=== PATIENT | female | born 1990 | race African-American/Black ===

== ENCOUNTER 2017-12-10 09:09 | Emergency (ER) | payer SELFPAY ==
[~2017-12-10] VITALS: Ht 160 cm; Wt 94.0 kg
[2017-12-10 11:49] LABS: BASOPHILS % 0.5 % (0.0-2.0); EOSINOPHILS % 0.9 % (0.0-5.0); HEMATOCRIT. 42.6 % (36.0-48.0); HEMOGLOBIN. 14.8 g/dL (12.0-16.0); LYMPHOCYTES % 37.9 % (20.0-50.0); MEAN CORPUSCULAR VOLUME 86.1 fL (81.0-99.0); MEAN PLATELET VOLUME 9.6 fl (7.4-10.4); MONOCYTES % 6.8 % (2.0-8.0); NEUTROPHILS % 53.9 % (40.0-76.0); PLATELET 233 x1000/uL (130-400); RED BLOOD CELL COUNT 4.94 mill/uL (4.2-5.4); RED CELL DISTRIBUTION WIDTH 13.8 % (11.6-14.6)
[2017-12-10 12:10] LABS: CARBON DIOXIDE 27 mEq/L (21-32); CHLORIDE 103 mEq/L (98-107)
[2017-12-10 12:34] LABS: CLARITY URINE CLEAR (CLEAR); COLOR URINE YELLOW (YELLOW); KETONES URINE NEGATIVE (NEGATIVE); LEUKOCYTE ESTERASE URINE TRACE (NEGATIVE); NITRITE URINE NEGATIVE (NEGATIVE); OCCULT BLOOD URINE NEGATIVE (NEGATIVE); PROTEIN URINE NEGATIVE (NEGATIVE)
[2017-12-10 13:25] LABS: B-HCG QUANTITATIVE 3723 mIU/mL (<3)
[2017-12-10 13:50] VITALS: BP 129/78
== END 2017-12-10 13:52 | disposition home or self-care (01) ==
LOC: ER 09:34
DX: O03.9 Complete or unspecified spontaneous abortion without complication (principal); O23.42 Unspecified infection of urinary tract in pregnancy, second trimester; O99.332 Smoking (tobacco) complicating pregnancy, second trimester; F17.200 Nicotine dependence, unspecified, uncomplicated; Z3A.21 21 weeks gestation of pregnancy
CPT/HCPCS: 36415; 76805; 80053; 81001; 84702; 85025; 86850; 86900; 99285

== ENCOUNTER 2017-12-12 14:07 | Inpatient (IN) | payer SELFPAY ==
[~2017-12-12] VITALS: Ht 160 cm; Wt 94.3 kg
[2017-12-12] MEDS ORDERED: DEXT 5%/LR + PITOCIN 20UNITS/L 1,000 ML IV SCH (14:45)
[2017-12-12] MEDS ORDERED: IBUPROFEN 400MG TABLET PO PRN (15:00)
[2017-12-12] MEDS ORDERED: IBUPROFEN 800MG TABLET PO PRN (15:00)
[2017-12-12] MEDS ORDERED: RHO(D) IMMUNE GLOBULIN 300 MCG/SYR IM PRN (15:00)
[2017-12-12] MEDS: LABETALOL HCL 200MG TABLET PO SCH (15:16)
[2017-12-12 15:35] LABS: PARTIAL THROMBOPLASTIN TIME 24.3 sec (23.4-31.0); PROTHROMBIN TIME 10.2 sec (9.4-11.6)
[2017-12-12 15:40] LABS: BASOPHILS % 0.6 % (0.0-2.0); EOSINOPHILS % 0.9 % (0.0-5.0); HEMATOCRIT. 40.3 % (36.0-48.0); HEMOGLOBIN. 14.3 g/dL (12.0-16.0); LYMPHOCYTES % 23.3 % (20.0-50.0); MEAN CORPUSCULAR HEMOGLOBIN 30.2 pg (28.0-32.0); MEAN CORPUSCULAR VOLUME 85.4 fL (81.0-99.0); MEAN PLATELET VOLUME 9.7 fl (7.4-10.4); MONOCYTES % 5.5 % (2.0-8.0); NEUTROPHILS % 69.7 % (40.0-76.0); PLATELET 240 x1000/uL (130-400); RED BLOOD CELL COUNT 4.73 mill/uL (4.2-5.4); RED CELL DISTRIBUTION WIDTH 13.9 % (11.6-14.6)
[2017-12-12 16:04] LABS: RUBELLA IGG 36.7 IU/mL (4.99-10)
[2017-12-12 16:30] VITALS: BP 142/72
[2017-12-12 16:34] LABS: HEPATITIS B SURFACE ANTIGEN NEGATIVE
[2017-12-12 17:14] LABS: *AMPHETAMINES SCREEN URINE NEGATIVE (NEGATIVE); *BARBITURATES SCREEN URINE NEGATIVE (NEGATIVE); *BENZODIAZEPINES SCREEN URINE NEGATIVE (NEGATIVE); *COCAINE SCREEN URINE NEGATIVE (NEGATIVE); METHADONE URINE SCREEN NEGATIVE (NEGATIVE); OPIATES URINE SCREEN NEGATIVE (NEGATIVE); PHENCYCLIDINE URINE SCREEN NEGATIVE (NEGATIVE)
[2017-12-12 17:19] LABS: CANNABINOID URINE SCREEN PRESUMTIVE POSITIVE (NEGATIVE)
[2017-12-12 17:25] LABS: CLARITY URINE CLOUDY (CLEAR); COLOR URINE RED (YELLOW); KETONES URINE 1+ (NEGATIVE); LEUKOCYTE ESTERASE URINE TRACE (NEGATIVE); NITRITE URINE NEGATIVE (NEGATIVE); OCCULT BLOOD URINE 3+ (NEGATIVE); PH URINE 6.5 (4.5-8.0); PROTEIN URINE 3+ (NEGATIVE); SPECIFIC GRAVITY URINE 1.014 (1.005-1.030)
[2017-12-12 17:45] VITALS: BP 127/78
[2017-12-12 19:30] VITALS: BP 134/85
[2017-12-12 23:45] VITALS: BP 134/77
[2017-12-13 03:50] VITALS: BP 142/84
[2017-12-13] MEDS: LABETALOL HCL 200MG TABLET PO SCH (03:54)
[2017-12-13 07:30] VITALS: BP 133/70
[2017-12-24 14:22] LABS: CANNABINOID CONFIRMATION URINE Positive (.)
== END 2017-12-13 11:15 | disposition home or self-care (01) | DRG 564 ==
LOC: OBSVTOIN 14:07 → L&D 14:07 → 7EST PP/OB 16:15
PROVIDERS: ADMIT Obstetrics & Gynecology; ATTEND Obstetrics & Gynecology
DX: O03.9 Complete or unspecified spontaneous abortion without complication (principal)
CPT/HCPCS: 36415; 80305; 80349; 81001; 85025; 85610; 85730; 86592; 86703; 86762; 86850; 86900; 87340; 88309; 96365; 96366; G0378; J2590; J7120